=== PATIENT | female | born 1955 | race Caucasian/White ===

== ENCOUNTER → 2017-04-28 | Outpatient (CLI) | payer OTHER | END | disposition home or self-care (01) | LOC: CFH 08:37 | PROVIDERS: ATTEND Internal Medicine Geriatric Medicine | DX: I08.0 Rheumatic disorders of both mitral and aortic valves (principal); G45.9 Transient cerebral ischemic attack, unspecified; I10 Essential (primary) hypertension; L75.0 Bromhidrosis; R41.0 Disorientation, unspecified | CPT/HCPCS: 93306 ==

== ENCOUNTER 2017-12-22 01:30 | Emergency (ER) | payer OTHER ==
[~2017-12-22] VITALS: Ht 160 cm; Wt 70.3 kg
[2017-12-22] MEDS ORDERED: DIPHENHYDRAMINE 50 MG/ML, 1ML ONE (01:57)
[2017-12-22] MEDS ORDERED: PROCHLORPERAZINE 5 MG/ML, 2ML ONE (01:57)
[2017-12-22] MEDS ORDERED: KETOROLAC 30 MG/1 ML ONE (01:57)
[2017-12-22] MEDS ORDERED: SODIUM CHLORIDE 0.9% 1,000ML IVBOLUS ONE (02:00)
[2017-12-22] MEDS ORDERED: KETOROLAC 30 MG/1 ML IVPush ONE (02:00)
[2017-12-22] MEDS ORDERED: PROCHLORPERAZINE 5 MG/ML, 2ML IVPush ONE (02:00)
[2017-12-22] MEDS ORDERED: SODIUM CHLORIDE FLUSH 10ML SYR IVF ONE (02:00)
[2017-12-22] MEDS ORDERED: DIPHENHYDRAMINE 50 MG/ML, 1ML IVPush ONE (02:00)
[2017-12-22 02:24] LABS: MICROSCOPIC INDICATED
[2017-12-22 02:39] LABS: CULTURE INDICATED? NO
[2017-12-22 03:21] VITALS: BP 121/74
== END 2017-12-22 03:31 | disposition home or self-care (01) ==
LOC: ED 03:19
DX: R51 Headache (principal); I10 Essential (primary) hypertension
CPT/HCPCS: 70450; 81001; 93005; 96361; 96374; 96375; 99285; J0780; J1200; J1885; J7030

== ENCOUNTER → 2018-11-28 | Outpatient (CLI) | payer OTHER | END | disposition home or self-care (01) | LOC: CFH 10:37 | PROVIDERS: ATTEND Obstetrics & Gynecology | DX: Z12.31 Encounter for screening mammogram for malignant neoplasm of breast (principal) | CPT/HCPCS: 77063; 77067 ==